=== PATIENT | male | born 1985 | race Caucasian/White ===

== ENCOUNTER 2018-04-04 14:35 | Emergency (ER) | payer SELFPAY ==
--- NOTE | 2018-04-04 16:02 | ER Document Report ---
ED Extremity Problem, Lower - General Chief Complaint: Knee Pain Stated Complaint: POSSIBLE ABSCESS Time Seen by Provider: 04/04/18 16:01 Mode of Arrival: Ambulatory Information source: Patient TRAVEL OUTSIDE OF THE [place] IN LAST 30 DAYS: No - HPI Patient complains to provider of: Pain, Swelling Location: Knee - LEFT Occurred: Other - 3-4 DAYS Where: Work - MAY HAVE HAD MINOR PUNCTURE WOUND. 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 denies: Fever, Short of breath Exacerbated by: Movement Relieved by: Elevation, Rest - Related Data Allergies/Adverse Reactions: No Known Allergies Allergy (Verified 04/04/18 14:37) Past Medical History - General Information source: Patient - Social History Smoking Status: Unknown if Ever Smoked Frequency of alcohol use: Occasional Drug Abuse: None Lives with: Spouse/Significant other Family History: Reviewed & Not Pertinent Patient has suicidal ideation: No Patient has homicidal ideation: No - Past Medical History Cardiac Medical History: Reports: None Pulmonary Medical History: Reports: None Neurological Medical History: Reports: None Endocrine Medical History: Reports: None Renal/ Medical History: Reports: None Malignancy Medical History: Reports None GI Medical History: Reports: None Musculoskeltal Medical History: Reports None Skin Medical History: Reports None Psychiatric Medical History: Reports: Hx Attention Deficit Hyperactivity Disorder Surgical Hx: Negative - Immunizations Hx Diphtheria, Pertussis, Tetanus Vaccination: Yes - within 10 years Review of Systems - Review of Systems Constitutional: See HPI EENT: No symptoms reported Cardiovascular: No symptoms reported Respiratory: No symptoms reported Gastrointestinal: No symptoms reported Musculoskeletal: See HPI Skin: See HPI Neurological/Psychological: No symptoms reported Physical Exam - Vital signs Vitals: Temp Pulse Resp BP Pulse Ox 99.9 F 140 H 20 137/102 H 98 04/04/18 14:39 04/04/18 14:39 04/04/18 14:39 04/04/18 14:39 04/04/18 14:39 Interpretation: Hypertensive, Tachycardic. No: Tachypneic, Febrile - General General appearance: Appears well, Alert In distress: None - HEENT Head: Normocephalic Eyes: Normal Conjunctiva: Normal Ears: Normal Nasal: Normal Mouth/Lips: Normal Mucous membranes: Normal - Respiratory Respiratory status: No respiratory distress - Cardiovascular Rhythm: Regular - Abdominal Inspection: Normal Distension: No distension - Back Back: Normal - Extremities General upper extremity: Normal inspection General lower extremity: No: Normal inspection - L. KNEE (SEE BELOW) Knee: Tender, Other - PRE-PATELLAR REDNESS, WARMTH, TENDERNESS; SMALL WOUND CENTRALLY DRAINING PURULENT MATERIALREDNESS EXTENDS PROXIMALLY TO JUST ABOVE FEMORAL CONDYLES. No: Joint effusion - Neurological Neuro grossly intact: Yes - Psychological Associated symptoms: Normal affect, Normal mood - Skin Skin Temperature: Warm Skin Moisture: Dry Skin Color: Normal Skin Turgor: Elastic Skin irregularity: Abscess, Erythema, Tender indurated area Course - Vital Signs Vital signs: Temp Pulse Resp BP Pulse Ox 99.9 F 140 H 20 137/102 H 98 04/04/18 14:39 04/04/18 14:39 04/04/18 14:39 04/04/18 14:39 04/04/18 14:39 Discharge - Discharge Clinical Impression: Prepatellar bursitis of left knee Condition: Stable Disposition: HOME, SELF-CARE Instructions: Abscess ([facility]), Oral Narcotic Medication ([facility]), Post Incision and Drainage Additional Instructions: KEEP BANDAGE IN PLACE, CLEAN, AND DRY. STAY OFF YOUR FEET AND KEEP KNEE ELEVATED MUCH POSSIBLE. MEDS DIRECTED. RETURN TOMORROW (TUESDAY) FOR RE-CHECK. Prescriptions: Hydrocodone/Acetaminophen [[place] 5-325 mg Tablet] 1 tab PO Q4HP PRN #14 tablet PRN Reason: For Pain Clindamycin HCl [Cleocin 150 mg Capsule] 300 mg PO Q6 #56 capsule Doxycycline Monohydrate 100 mg PO BID #20 tablet
[2018-04-04] MEDS ORDERED: NORMAL SALINE 1000 ML 2,000 ML IV PRN (16:34)
[2018-04-04] MEDS ORDERED: LIDOCAINE 1% INJ-PF (10 MG/ML) 30 ML SDV INJ ONE (16:35)
[2018-04-04] MEDS ORDERED: CLINDAMYCIN 600 MG/D5W RTU 600 MG/50 ML RTUPB IV ONE (16:35)
[2018-04-04] MEDS ORDERED: MORPHINE SULFATE 10 MG/ML INJ IV ONE (16:41)
[2018-04-04] MEDS ORDERED: ONDANSETRON HCL INJ/PF 4 MG/2 ML SDV IV ONE (16:41)
--- NOTE | 2018-04-04 17:08 | RADIOLOGY REPORT (SQ) ---
EXAM DESCRIPTION: KNEE LEFT 3 VIEWS COMPLETED DATE/TIME: 04/04/2018 4:55 pm REASON FOR STUDY: INFECTED WOUND, R/O F.B. COMPARISON: None. NUMBER OF VIEWS: Three views. TECHNIQUE: AP, lateral, and sunrise patella radiographic images acquired of the left knee. LIMITATIONS: None. FINDINGS: MINERALIZATION: Normal. BONES: No acute fracture or dislocation. No worrisome bone lesions. JOINT: No effusion. SOFT TISSUES: Prepatellar soft tissue swelling. No radio-opaque foreign body. OTHER: No other significant finding. IMPRESSION: PREPATELLAR SOFT TISSUE SWELLING WITHOUT FRACTURE OR RADIOPAQUE FOREIGN BODY IDENTIFIED. TECHNICAL DOCUMENTATION: JOB ID: [id number] [employer]- All Rights Reserved Reading location - IP/workstation name: [email or web address]
[2018-04-04 20:18] VITALS: BP 128/68
== END 2018-04-04 20:17 | disposition home or self-care (01) ==
LOC: ER 14:35
PROC: 0H9LXZZ Drainage of Left Lower Leg Skin, External Approach (ICD-10-PCS; principal; 2018-04-04)
DX: M70.42 Prepatellar bursitis, left knee (principal); M25.562 Pain in left knee
CPT/HCPCS: 99283; 96361; 96374; 96375; 87070; 87205; 87077; 87186; 73562; 10060; A6266; J3490; J2270; J2405; J7030

== ENCOUNTER 2018-04-05 17:10 | Emergency (ER) | payer SELFPAY ==
--- NOTE | 2018-04-05 18:06 | ER Document Report ---
ED Wound - General Chief Complaint: Wound Recheck Stated Complaint: WOUND RECHECK/PACKING Time Seen by Provider: 04/05/18 17:28 Mode of Arrival: Ambulatory Information source: Patient TRAVEL OUTSIDE OF THE [place] IN LAST 30 DAYS: No - HPI Patient complains to provider of: Other - FOLLOW-UP OF ABSCESS I&D Occurred: Other - I&D PERFORMED YESTERDAY Quality of pain: Burning Severity: Mild - SAYS PAIN IMPROVED FROM YESTERDAY Context: Injury, Work related Skin Temperature: Warm Skin Color: Normal Notes: Packing was removed from wound, and a small amount of purulent drainage was expressed. A specimen was obtained and sent to lab for repeat culture. The redness and warmth surrounding the wound has decreased since yesterday. Also, tenderness has decreased. Wound is re-bandaged and patient is given instructions for home care. Return as needed. - Related Data Allergies/Adverse Reactions: No Known Allergies Allergy (Verified 04/04/18 14:37) Past Medical History - Social History Smoking Status: Current Every Day Smoker Family History: Reviewed & Not Pertinent Patient has suicidal ideation: No Patient has homicidal ideation: No - Medical History Medical History: Negative Renal/ Medical History: Denies: Hx Peritoneal Dialysis Psychiatric Medical History: Reports: Hx Attention Deficit Hyperactivity Disorder Past Surgical History: Reports: Hx Oral Surgery - wisdom teeth - Immunizations Hx Diphtheria, Pertussis, Tetanus Vaccination: Yes - within 10 years Review of Systems - Review of Systems Constitutional: Fever EENT: No symptoms reported Cardiovascular: No symptoms reported Respiratory: No symptoms reported Gastrointestinal: No symptoms reported Genitourinary: No symptoms reported Musculoskeletal: No symptoms reported Skin: See HPI Neurological/Psychological: No symptoms reported Physical Exam - Vital signs Vitals: Temp Pulse Resp BP Pulse Ox 100.2 F 114 H 16 123/79 99 04/05/18 17:20 04/05/18 17:20 04/05/18 17:20 04/05/18 17:20 04/05/18 17:20 Interpretation: Tachycardic - General General appearance: Appears well, Alert In distress: None - Respiratory Respiratory status: No respiratory distress - Cardiovascular Rhythm: Regular, Tachycardia - Abdominal Inspection: Normal Distension: No distension - Extremities General upper extremity: Normal inspection General lower extremity: No: Normal inspection - L. KNEE (SEE NARRATIVE IN HPI) - Neurological Neuro grossly intact: Yes Cognition: Normal Orientation: AAOx4 - Psychological Associated symptoms: Normal affect, Normal mood - Skin Skin Temperature: Warm Skin Moisture: Dry Skin Color: Normal Skin Turgor: Elastic Skin irregularity: other - SEE ABOVE Course - Vital Signs Vital signs: Temp Pulse Resp BP Pulse Ox 100.2 F 114 H 16 123/79 99 04/05/18 17:20 04/05/18 17:20 04/05/18 17:20 04/05/18 17:20 04/05/18 17:20 Discharge - Discharge Clinical Impression: Abscess, Prepatellar bursitis of left knee Condition: Stable Disposition: HOME, SELF-CARE Instructions: Epsom Salt Soaks ([facility]) Additional Instructions: CONTINUE KEEPING KNEE ELEVATED MUCH POSSIBLE. CONTINUE PRESENT MEDICATIONS. FOUR TIMES A DAY, REMOVE BANDAGE, SOAK WOUND IN WARM SALT WATER FOR 15-20 MINUTES, THEN DRY GENTLY AND RE-BANDAGE WITH ANTIBIOTIC OINTMENT AND GAUZE. CONTINUE DOING THIS UNTIL ALL SORENESS AND REDNESS IS GONE. RETURN TO E.R. FOR RE-EVALUATION IF YOU STOP GETTING BETTER AND START GETTING WORSE, ANY TIME.
[2018-04-05 18:18] VITALS: BP 125/80
[2018-04-05] MEDS ORDERED: ACETAMINOPHEN 325 MG TABLET PO ONE (18:20)
== END 2018-04-05 18:39 | disposition home or self-care (01) ==
LOC: ER 17:10
DX: Z48.01 Encounter for change or removal of surgical wound dressing (principal); L02.91 Cutaneous abscess, unspecified; M70.42 Prepatellar bursitis, left knee; R50.9 Fever, unspecified; R00.0 Tachycardia, unspecified; F17.200 Nicotine dependence, unspecified, uncomplicated
CPT/HCPCS: 87070; 87075; 87077; 87186; 87205; 99282

== ENCOUNTER 2019-02-20 10:09 | Emergency (ER) | payer MEDICAID ==
[2019-02-20] MEDS ORDERED: NORMAL SALINE 1000 ML 1,000 ML IV ONE (10:20)
--- NOTE | 2019-02-20 13:00 | ER Document Report ---
ED General - General Chief Complaint: Overdose Stated Complaint: POSSIBLE OVERDOSE Time Seen by Provider: 02/20/19 10:20 TRAVEL OUTSIDE OF THE [place] IN LAST 30 DAYS: No - HPI Patient complains to provider of: Overdose Notes: Patient coming in for an overdose. Patient states he normally uses meth however today injected heroin. Patient was found cyanotic by EMS given 2 mg of nasal Narcan along with 2 mg of Narcan IV. Upon my evaluation patient is alert and oriented. Patient has no other complaints. Denies chest pain abdominal pain fever chills nausea vomiting diarrhea shortness of breath. Patient denies any other past medical history. Resting comfortably upon my evaluation. - Related Data Allergies/Adverse Reactions: No Known Allergies Allergy (Verified 04/04/18 14:37) Past Medical History - Social History Smoking Status: Current Every Day Smoker Chew tobacco use (# tins/day): No Frequency of alcohol use: Rare Drug Abuse: Heroin, Methamphetamine Family History: Reviewed & Not Pertinent Patient has suicidal ideation: No Patient has homicidal ideation: No Renal/ Medical History: Denies: Hx Peritoneal Dialysis Psychiatric Medical History: Reports: Hx Attention Deficit Hyperactivity Disorder Past Surgical History: Reports: Hx Oral Surgery - wisdom teeth - Immunizations Hx Diphtheria, Pertussis, Tetanus Vaccination: Yes - within 10 years Review of Systems - Review of Systems Notes: Overdose Constitutional: No symptoms reported EENT: No symptoms reported Cardiovascular: No symptoms reported Respiratory: No symptoms reported Gastrointestinal: No symptoms reported Genitourinary: No symptoms reported Male Genitourinary: No symptoms reported Musculoskeletal: No symptoms reported Skin: No symptoms reported Hematologic/Lymphatic: No symptoms reported Neurological/Psychological: No symptoms reported Physical Exam - Vital signs Vitals: Pulse Resp BP Pulse Ox 102 H 13 135/89 H 100 02/20/19 10:10 02/20/19 10:10 02/20/19 10:10 02/20/19 10:10 Interpretation: Normal - General General appearance: Appears well, Alert - HEENT Head: Normocephalic, Atraumatic Eyes: Normal Pupils: PERRL - Respiratory Respiratory status: No respiratory distress Chest status: Nontender Breath sounds: Normal Chest palpation: Normal - Cardiovascular Rhythm: Regular Heart sounds: Normal auscultation Murmur: No - Abdominal Inspection: Normal Distension: No distension Bowel sounds: Normal Tenderness: Nontender Organomegaly: No organomegaly - Back Back: Normal, Nontender - Extremities General upper extremity: Normal inspection, Nontender, Normal color, Normal ROM, Normal temperature General lower extremity: Normal inspection, Nontender, Normal color, Normal ROM, Normal temperature, Normal weight bearing. No: Danny's sign - Neurological Neuro grossly intact: Yes Cognition: Normal Orientation: AAOx4 Milady Coma Scale Eye Opening: Spontaneous Milady Coma Scale Verbal: Oriented Milady Coma Scale Motor: Obeys Commands Milady Coma Scale Total: 15 Speech: Normal Motor strength normal: LUE, RUE, LLE, RLE Sensory: Normal - Psychological Associated symptoms: Normal affect, Normal mood - Skin Skin Temperature: Warm Skin Moisture: Dry Skin Color: Normal Course - Re-evaluation Re-evalutation: 02/20/19 13:51 Patient was monitored in ER able to tolerate p.o. when able to the restroom without difficulty. No signs of respiratory depression hypoxia patient will be discharged home resources for drug rehab and detox were given to the patient. - Vital Signs Vital signs: Temp Pulse Resp BP Pulse Ox 102 H 11 L 127/90 H 99 02/20/19 10:10 02/20/19 13:01 02/20/19 13:01 02/20/19 13:01 Discharge - Discharge Clinical Impression: Overdose Qualifiers: Encounter type: initial encounter Injury intent: accidental or unintentional Qualified Code(s): T50.901A - Poisoning by unspecified drugs, medicaments and biological substances, accidental (unintentional), initial encounter Instructions: Instructions for Home Care Following a Drug Overdose ([facility]), Overdose ([facility]) Additional Instructions: Please follow-up with your primary care physician please follow-up with resources given for drug rehab return to ER symptoms worsen.
[2019-02-20 13:06] VITALS: BP 127/90
[2019-02-20 13:46] LABS: URINE BARBITURATES SCREEN NEGATIVE; URINE BENZODIAZEPINES SCREEN NEGATIVE; URINE COCAINE SCREEN NEGATIVE; URINE MARIJUANA (THC) SCREEN NEGATIVE; URINE METHADONE SCREEN NEGATIVE
[2019-02-20 14:06] LABS: APPEARANCE,URINE CLEAR; COLOR,URINE LIGHT YELLOW
[2019-02-20 14:07] LABS: ADD MANUAL MICROSCOPIC YES; BACTERIA,URINE TRACE /HPF; BILIRUBIN,URINE NEGATIVE (NEGATIVE); GLUCOSE, URINE 150 mg/dL (NEGATIVE); KETONES,URINE NEGATIVE (NEGATIVE); LEUKOCYTE ESTERASE,URINE NEGATIVE (NEGATIVE); NITRITE,URINE NEGATIVE (NEGATIVE); PROTEIN,URINE NEGATIVE (NEGATIVE); URINE SPECIFIC GRAVITY 1.014; UROBILINOGEN,URINE NEGATIVE mg/dL (<2.0)
[2019-02-20 14:08] LABS: AMORPHOUS SEDIMENT,UR 1+
[2019-02-20 14:12] LABS: URINE PHENCYCLIDINE SCREEN NEGATIVE
== END 2019-02-20 13:12 | disposition home or self-care (01) ==
LOC: ER 10:09
DX: T40.1X1A Poisoning by heroin, accidental (unintentional), initial encounter (principal); X58.XXXA Exposure to other specified factors, initial encounter; F17.200 Nicotine dependence, unspecified, uncomplicated
CPT/HCPCS: 99284; 96360; 96361; 81001; 80307; J7030

== ENCOUNTER → 2020-08-21 | Outpatient (CLI) | payer SELFPAY ==
--- NOTE | 2020-08-21 09:43 | RADIOLOGY REPORT (SQ) ---
EXAM DESCRIPTION: COOKIE SWALLOW IMAGES COMPLETED DATE/TIME: 08/21/2020 9:13 am REASON FOR STUDY: R13.19 OTHER DYSPHAGIA R13.19 OTHER DYSPHAGIA COMPARISON: None. TECHNIQUE: Videofluoroscopic swallowing examination was performed in conjunction with speech patholo gy. Videofluoroscopic imaging was obtained and reviewed and these are the findings: RADIATION DOSE: Fluoro time 2.3 minutes 1 images saved to PACS. LIMITATIONS: None FINDINGS: The patient was brought into the fluoro room and placed upright on a modified barium swall ow chair. The patient was then given multiple consistencies mixed with barium to swallow under live fluoroscopic video guidance. According to the Speech Pathologist there was laryngeal penetration was seen with thin barium. All other consistencies were swallowed without incident. No aspiration iden tified. Please refer to the speech pathology report for further details. IMPRESSION: LARYNGEAL PENETRATION, WITHOUT ASPIRATION, SEEN WITH THIN BARIUM. PLEASE SEE SPEECH PATH OLOGIST REPORT FOR OTHER FINDINGS AND RECOMMENDATIONS. COMMENT: NONE Quality ID [id number]: Final reports for procedures using fluoroscopy that document radiation exposure masoud brooke, or exposure time and number of fluorographic images (if radiation exposure indices are not avail able) TECHNICAL DOCUMENTATION: JOB ID: [id number] 2010 [employer]- All Rights Reserved Reading location - IP/workstation name: [email or web address] [id number]
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
== END ==
LOC: RAD 08:13
PROVIDERS: ATTEND Physical Medicine & Rehabilitation Pain Medicine
DX: R13.19 Other dysphagia (principal); K21.9 Gastro-esophageal reflux disease without esophagitis; F98.8 Other specified behavioral and emotional disorders with onset usually occurring in childhood and adolescence; Z72.0 Tobacco use
CPT/HCPCS: 74230